=== PATIENT | male | born 1945 | race African-American/Black ===

== ENCOUNTER 2017-03-14 07:38 | Day surgery (SDC) | payer OTHER ==
[2017-03-14] MEDS ORDERED: D5 LR 1000 ML 1,000 ML IV ONE (07:48)
[2017-03-14] MEDS ORDERED: DIPRIVAN VIAL 20 ML ONE ×2 (08:48→08:58)
[2017-03-14 09:49] VITALS: BP 120/60
== END 2017-03-14 09:30 | disposition home or self-care (01) ==
LOC: SURG1 07:38
PROVIDERS: ATTEND Internal Medicine Gastroenterology
PROC: 0DBN8ZX Excision of Sigmoid Colon, Via Natural or Artificial Opening Endoscopic, Diagnostic (ICD-10-PCS; principal; 2017-03-14 08:45)
PROC: 0DJD8ZZ Inspection of Lower Intestinal Tract, Via Natural or Artificial Opening Endoscopic (ICD-10-PCS; principal; 2017-03-14 08:45)
DX: R10.84 Generalized abdominal pain (principal); R10.2 Pelvic and perineal pain; R19.7 Diarrhea, unspecified; K63.5 Polyp of colon; K57.30 Diverticulosis of large intestine without perforation or abscess without bleeding; K64.0 First degree hemorrhoids; Z85.79 Personal history of other malignant neoplasms of lymphoid, hematopoietic and related tissues; Z80.0 Family history of malignant neoplasm of digestive organs
CPT/HCPCS: A4217; J3490; J7120

== ENCOUNTER 2019-10-12 14:52 | Inpatient (IN) ==
[2019-10-12 15:55] LABS: BASOPHILS % (AUTO) 0.8 % (0.2-1.0); EOSINOPHILS # (AUTO) 0.2 x10^3/uL (0.0-0.2); EOSINOPHILS % (AUTO) 2.9 % (0.9-2.9); HEMATOCRIT 36.7 % (42.0-54.0); HEMOGLOBIN 12.2 g/dL (13.5-18.0); LYMPHOCYTES # (AUTO) 1.2 X10^3/uL (1.3-2.9); MEAN CORPUSCULAR HEMOGLOBIN 32.3 pg (27.0-34.0); MEAN CORPUSCULAR HGB CONC 33.3 g/dL (33.0-35.0); MEAN CORPUSCULAR VOLUME 96.8 fL (80.0-100.0); MEAN PLATELET VOLUME 9.3 fL (7.4-11.0); MONOCYTES # (AUTO) 0.2 x10^3/uL (0.3-0.8); MONOCYTES % (AUTO) 3.2 % (0.0-13.0); NEUTROPHILS # (AUTO) 3.9 x10^3/uL (2.2-4.8); NEUTROPHILS % (AUTO) 71.1 % (42.0-75.0); PLATELET COUNT 118 X10^3/uL (150.0-450.0); RED BLOOD COUNT 3.79 X10^6/uL (4.7-6.0); RED CELL DISTRIBUTION WIDTH 16.5 % (11.6-16.5); WHITE BLOOD COUNT 5.5 X10^3/uL (3.6-10.0)
[2019-10-12 16:08] LABS: ALBUMIN 3.1 g/dL (3.4-5.0); CALCIUM 9.4 mg/dL (8.5-10.1); CARBON DIOXIDE 26.5 mmol/L (21-32); COR CA(FOR HYPOALB) 10.1 mg/dL (8.5-10.1); CREATININE 1.63 mg/dL (0.70-1.30); TOTAL PROTEIN 6.7 g/dL (6.4-8.2)
[2019-10-12] MEDS: NS 1000 ML 1,000 ML IV SCH (16:16)
[2019-10-12 16:24] VITALS: BMI 29.0
[2019-10-12 19:19] LABS: BILIRUBIN,URINE NEGATIVE (NEGATIVE); BLOOD/HEMOGLOBIN,URINE NEGATIVE (NEGATIVE); GLUCOSE, URINE 4+ (NEGATIVE); KETONES,URINE NEGATIVE (NEGATIVE); LEUKOCYTE ESTERASE ,URINE NEGATIVE (NEGATIVE); NITRITES,URINE NEGATIVE (NEGATIVE); PROTEIN,URINE NEGATIVE (NEGATIVE); UROBILINOGEN,URINE NORMAL (NORMAL)
[2019-10-12 19:21] LABS: APPEARANCE,URINE CLEAR (CLEAR); COLOR,URINE YELLOW (YELLOW)
[2019-10-12] MEDS: MILK OF MAGNESIA PO SCH (21:28)
[2019-10-12] MEDS: COLACE CAP 100 MG PO SCH (21:28)
[2019-10-12] MEDS ORDERED: TORADOL 30 MG VIAL IVP PRN (21:36)
[2019-10-12] MEDS ORDERED: AMBIEN PO PRN (21:41)
[2019-10-12] MEDS: HumuLIN R SUBCUT PRN (21:41)
[2019-10-12] MEDS ORDERED: OXYCODONE HCL 10 MG PO PRN (21:41)
[2019-10-12] MEDS: MYSOLINE TAB 250 MG PO SCH (22:03)
[2019-10-12] MEDS: REQUIP PO SCH (22:04)
[2019-10-12] MEDS: TORADOL 15 MG VIAL IVP SCH (22:23)
[2019-10-13] MEDS: NS 1000 ML 1,000 ML IV SCH ×2 (06:00→17:15)
[2019-10-13] MEDS: TORADOL 15 MG VIAL IVP SCH (06:01)
[2019-10-13] MEDS: MYSOLINE TAB 250 MG PO SCH ×3 (06:01→21:18)
[2019-10-13 06:02] LABS: BASOPHILS % (AUTO) 0.7 % (0.2-1.0); EOSINOPHILS # (AUTO) 0.1 x10^3/uL (0.0-0.2); EOSINOPHILS % (AUTO) 2.3 % (0.9-2.9); HEMOGLOBIN 10.8 g/dL (13.5-18.0); LYMPHOCYTES % (AUTO) 22.6 % (21.0-51.0); MEAN CORPUSCULAR HEMOGLOBIN 32.4 pg (27.0-34.0); MEAN CORPUSCULAR HGB CONC 33.8 g/dL (33.0-35.0); MEAN CORPUSCULAR VOLUME 95.9 fL (80.0-100.0); MEAN PLATELET VOLUME 9.7 fL (7.4-11.0); MONOCYTES # (AUTO) 0.2 x10^3/uL (0.3-0.8); MONOCYTES % (AUTO) 3.8 % (0.0-13.0); NEUTROPHILS % (AUTO) 70.6 % (42.0-75.0); PLATELET COUNT 94 X10^3/uL (150.0-450.0); RED BLOOD COUNT 3.34 X10^6/uL (4.7-6.0); RED CELL DISTRIBUTION WIDTH 16.2 % (11.6-16.5); WHITE BLOOD COUNT 4.3 X10^3/uL (3.6-10.0)
[2019-10-13] MEDS: ROXICODONE TAB 5 MG PO PRN (06:20)
[2019-10-13] MEDS: HumuLIN R SUBCUT PRN ×2 (06:20→17:15)
[2019-10-13 06:31] LABS: ALANINE AMINOTRANSFERASE 17 Units/L (12-78); ALBUMIN 2.6 g/dL (3.4-5.0); ALKALINE PHOSPHATASE 52 Units/L (46-116); ASPARTATE AMINO TRANSFERASE 11 Units/L (15-37); BLOOD UREA NITROGEN 22 mg/dL (7-18); CALCIUM 8.2 mg/dL (8.5-10.1); CARBON DIOXIDE 24.2 mmol/L (21-32); CHLORIDE 107 mmol/L (98-107); COR CA(FOR HYPOALB) 9.3 mg/dL (8.5-10.1); COR NA(FOR HYPERGLY) 141 mmol/L (136-145); CREATININE 1.34 mg/dL (0.70-1.30); SODIUM 138 mmol/L (136-145); TOTAL PROTEIN 5.8 g/dL (6.4-8.2); eGFR NON BLACK RACES 55 (>60)
[2019-10-13] MEDS: NORVASC TAB 10 MG PO SCH (08:30)
[2019-10-13] MEDS: ASPIRIN 81 MG CHEWTAB PO SCH (08:30)
[2019-10-13] MEDS: FLONASE NASAL SPRAY ENOSTRIL SCH ×2 (08:30→21:17)
[2019-10-13] MEDS: REQUIP PO SCH ×2 (08:31→21:18)
[2019-10-13] MEDS: K-DUR TAB 20 MEQ PO SCH (08:31)
[2019-10-13] MEDS: LOPRESSOR TAB 50 MG PO SCH ×2 (08:31→21:18)
[2019-10-13] MEDS: VITAMIN C PO SCH (08:32)
[2019-10-13] MEDS: [UNRECOGNIZED DRUG - OTHER] PO SCH (08:33)
[2019-10-13] MEDS: IMDUR PO SCH (08:33)
[2019-10-13] MEDS: PLAVIX PO SCH (08:33)
[2019-10-13] MEDS: PROSCAR PO SCH (08:34)
[2019-10-13] MEDS: MILK OF MAGNESIA PO SCH ×2 (09:37→21:18)
[2019-10-13] MEDS: NEURONTIN CAP 100 MG PO SCH ×2 (09:37→21:18)
--- NOTE | 2019-10-13 09:59 | DR.UPDATE ---
H&P Update History and Physical Update: History and Physical reviewed and patient examined. Changes noted: Yes with the following: PRESENTED TO THE OFFICE TODAY FOR COMPLAINTS OF BILATERAL HIP PAIN AND LOWER BACK PAIN. HE HAS A HISTORY OF MULTIPLE MYELOMA. HE HAS RECENTLY RECEIVED TWO INJECTIONS FOR HIS BACK ON AND TWO MORE ON 09/28/19. HE DENIES IMPROVEMENT IN SYMPTOMS AND REPORTS BEING UNABLE TO WALK OR BEAR WEIGHT DUE TO PAIN. HE WAS ADMITTED FOR FURTHER EVALUATION AND TREATMENT OF INTRACTABLE BACK PAIN. ON ADMISSION, WE WILL OBTAIN LABS, A MRI WITH CONTRAST OF THE LUMBAR SPINE, AND START IV FLUIDS, MORPHINE 2MG IV Q4H PRN PAIN, AND WILL REVIEW HIS HOME MEDICATIONS. OTHERWISE, WE WILL FOLLOW UP WITH AM LABS AND CONTINUE TO MONITOR. Prescription drug monitoring program results: PDMP was not reviewed H&P Reviewed: Yes Patient was examined?: Yes
[2019-10-13] MEDS ORDERED: LOVENOX INJ 40 MG SYR SC SCH (11:00)
[2019-10-13] MEDS: SNACK - Diabetic Appropriate PO SCH (21:17)
[2019-10-13] MEDS: FLOMAX PO SCH (21:17)
[2019-10-13] MEDS: COLACE CAP 100 MG PO SCH (21:17)
[2019-10-14] MEDS: ROXICODONE TAB 5 MG PO PRN ×4 (02:50→20:35)
[2019-10-14 05:32] LABS: BASOPHILS % (AUTO) 0.6 % (0.2-1.0); EOSINOPHILS # (AUTO) 0.1 x10^3/uL (0.0-0.2); EOSINOPHILS % (AUTO) 1.7 % (0.9-2.9); HEMATOCRIT 32.8 % (42.0-54.0); HEMOGLOBIN 11.2 g/dL (13.5-18.0); LYMPHOCYTES % (AUTO) 20.2 % (21.0-51.0); MEAN CORPUSCULAR HEMOGLOBIN 32.9 pg (27.0-34.0); MEAN CORPUSCULAR VOLUME 96.8 fL (80.0-100.0); MEAN PLATELET VOLUME 9.8 fL (7.4-11.0); MONOCYTES # (AUTO) 0.2 x10^3/uL (0.3-0.8); MONOCYTES % (AUTO) 4.5 % (0.0-13.0); NEUTROPHILS # (AUTO) 3.6 x10^3/uL (2.2-4.8); PLATELET COUNT 85 X10^3/uL (150.0-450.0); RED BLOOD COUNT 3.39 X10^6/uL (4.7-6.0); RED CELL DISTRIBUTION WIDTH 16.6 % (11.6-16.5); WHITE BLOOD COUNT 4.9 X10^3/uL (3.6-10.0)
[2019-10-14] MEDS: MYSOLINE TAB 250 MG PO SCH ×3 (05:44→21:30)
[2019-10-14] MEDS: HumuLIN R SUBCUT PRN ×4 (05:45→21:45)
[2019-10-14 05:47] LABS: ALANINE AMINOTRANSFERASE 18 Units/L (12-78); ALBUMIN 2.6 g/dL (3.4-5.0); ALKALINE PHOSPHATASE 54 Units/L (46-116); ASPARTATE AMINO TRANSFERASE 12 Units/L (15-37); BLOOD UREA NITROGEN 17 mg/dL (7-18); CARBON DIOXIDE 22.2 mmol/L (21-32); CHLORIDE 106 mmol/L (98-107); COR CA(FOR HYPOALB) 9.1 mg/dL (8.5-10.1); COR NA(FOR HYPERGLY) 141 mmol/L (136-145); CREATININE 1.26 mg/dL (0.70-1.30); SODIUM 137 mmol/L (136-145); TOTAL PROTEIN 5.8 g/dL (6.4-8.2); eGFR NON BLACK RACES 59 (>60)
[2019-10-14] MEDS: NS 1000 ML 1,000 ML IV SCH ×4 (05:55→20:37)
[2019-10-14] MEDS: MORPHINE SULFATE INJ 2 MG INJ IVP PRN ×4 (05:56→23:52)
[2019-10-14] MEDS: REQUIP PO SCH ×2 (09:10→20:34)
[2019-10-14] MEDS: MILK OF MAGNESIA PO SCH ×3 (09:10→20:38)
[2019-10-14] MEDS: ASPIRIN 81 MG CHEWTAB PO SCH (09:10)
[2019-10-14] MEDS: IMDUR PO SCH (09:11)
[2019-10-14] MEDS: VITAMIN C PO SCH (09:11)
[2019-10-14] MEDS: NORVASC TAB 10 MG PO SCH (09:11)
[2019-10-14] MEDS: K-DUR TAB 20 MEQ PO SCH (09:12)
[2019-10-14] MEDS: NEURONTIN CAP 100 MG PO SCH ×2 (09:12→20:34)
[2019-10-14] MEDS: PROSCAR PO SCH (09:12)
[2019-10-14] MEDS: FLONASE NASAL SPRAY ENOSTRIL SCH ×2 (09:12→20:38)
[2019-10-14] MEDS: LOPRESSOR TAB 50 MG PO SCH ×2 (09:12→20:35)
[2019-10-14] MEDS: PLAVIX PO SCH (09:16)
[2019-10-14] MEDS: [UNRECOGNIZED DRUG - OTHER] PO SCH (10:22)
[2019-10-14] MEDS: SNACK - Diabetic Appropriate PO SCH (20:15)
[2019-10-14] MEDS: FLOMAX PO SCH (20:34)
[2019-10-14] MEDS: COLACE CAP 100 MG PO SCH (20:37)
[2019-10-15 05:17] LABS: BASOPHILS % (AUTO) 0.6 % (0.2-1.0); EOSINOPHILS # (AUTO) 0.1 x10^3/uL (0.0-0.2); EOSINOPHILS % (AUTO) 2.1 % (0.9-2.9); HEMATOCRIT 31.5 % (42.0-54.0); HEMOGLOBIN 10.7 g/dL (13.5-18.0); LYMPHOCYTES # (AUTO) 1.1 X10^3/uL (1.3-2.9); LYMPHOCYTES % (AUTO) 23.9 % (21.0-51.0); MEAN CORPUSCULAR HGB CONC 34.1 g/dL (33.0-35.0); MEAN CORPUSCULAR VOLUME 96.7 fL (80.0-100.0); MEAN PLATELET VOLUME 9.7 fL (7.4-11.0); MONOCYTES # (AUTO) 0.2 x10^3/uL (0.3-0.8); NEUTROPHILS # (AUTO) 3.3 x10^3/uL (2.2-4.8); NEUTROPHILS % (AUTO) 68.4 % (42.0-75.0); PLATELET COUNT 87 X10^3/uL (150.0-450.0); RED BLOOD COUNT 3.25 X10^6/uL (4.7-6.0); RED CELL DISTRIBUTION WIDTH 16.7 % (11.6-16.5); WHITE BLOOD COUNT 4.8 X10^3/uL (3.6-10.0)
[2019-10-15 05:27] LABS: ALANINE AMINOTRANSFERASE 19 Units/L (12-78); ALBUMIN 2.6 g/dL (3.4-5.0); ALKALINE PHOSPHATASE 56 Units/L (46-116); ASPARTATE AMINO TRANSFERASE 13 Units/L (15-37); BLOOD UREA NITROGEN 20 mg/dL (7-18); CARBON DIOXIDE 23.6 mmol/L (21-32); CHLORIDE 104 mmol/L (98-107); COR CA(FOR HYPOALB) 9.1 mg/dL (8.5-10.1); COR NA(FOR HYPERGLY) 140 mmol/L (136-145); CREATININE 1.15 mg/dL (0.70-1.30); SODIUM 135 mmol/L (136-145); TOTAL PROTEIN 5.7 g/dL (6.4-8.2); eGFR NON BLACK RACES > 60 (>60)
[2019-10-15] MEDS: ROXICODONE TAB 5 MG PO PRN (05:28)
[2019-10-15] MEDS: MYSOLINE TAB 250 MG PO SCH ×3 (05:28→21:00)
[2019-10-15] MEDS: NS 1000 ML 1,000 ML IV SCH ×4 (05:28→21:59)
[2019-10-15] MEDS: HumuLIN R SUBCUT PRN ×4 (06:07→20:30)
--- NOTE | 2019-10-15 08:45 | PCM.PROG ---
Progress Note - Progress Note for Day of Date of Exam: 10/13/19 - Subjective Subjective: WAS ADMITTED FOR INTRACTABLE BACK PAIN AND BILATERAL HIP PAIN. TODAY, HE IS ALERT AND ORIENTED, LYING IN BED ON MORNING ROUNDS. HE CONTINUES WITH PAIN. HE REPORTS THAT PAIN IS ABOUT THE SAME ON ADMISSION. HE WAS STARTED ON TORADOL, BUT REFUSED DUE TO PAST ISSUES WITH HIS KIDNEYS. ON EXAMINATION, HEART IS REGULAR IN RATE AND RHYTHM. BILATERAL LUNGS ARE NOTED WITH DIMINISHED LUNG SOUNDS THROUGHOUT. ABDOMEN IS ROUND, SOFT, AND NON-TENDER WITH NORMAL BOWEL SOUNDS NOTED IN ALL QUADRANTS. HIS VITALS THIS MORNING ARE: 98.8-84-20-94%-162/71. LABS WERE OBTAINED. ABNORMAL LAB VALUES INCLUDE THE FOLLOWING: RBC 3.34, HGB 10.8, HCT 32.0, PLT COUNT 94, BUN 22, CREATININE 1.34, GLUCOSE 222, CALCIUM 8.2, AST 11, TOTAL PROTEIN 5.8, ALBUMIN 2.6. TODAY, WE WILL CONTINUE WITH IV FLUIDS AND PAIN CONTROL. WHEN KIDNEY FUNCTION IS AT SAFE LEVELS, WE WILL OBTAIN AN MRI WITH CONTRAST OF THE LUMBAR SPINE. OTHERWISE, WE WILL FOLLOW UP WITH AM LABS AND CONTINUE TO MONITOR. - Past Medical Family Social History Past Med/Fam/Surg Hx: No changes since H&P Allergies: Allergies atorvastatin [From Lipitor] Allergy (Verified 11/28/18 05:17) - Review of Systems ROS: No change since H&P - Vital Signs and I&O's Vital Signs: Temperature 97.5 F Pulse Rate [Right Brachial] 80 Respiratory Rate 16 Blood Pressure [Right Arm] 176/79 Blood Pressure 142/65 O2 Sat by Pulse Oximetry 97 Intake and Output: Intake & Output 10/12/19 10/13/19 10/14/19 10/15/19 11:59 11:59 11:59 11:59 Intake Total 1100 / 1100 2320 / 2320 2039 / 2039 Output Total 225 / 225 Balance 1100 / 1100 2320 / 2320 1814 / 181 - Physical Exam Oriented: Normal Eyes: Normal Ear: Normal Nose: Normal Throat: Normal Respiratory: Generalized, Diminished Cardiovascular: Normal. negative: S3, S4, Murmur : Normal Auscultation: Bowel Sounds: Normal Palpation: Normal Tenderness: Normal Skin: Normal Musculoskeletal: Back:Lumbar, Tender Psychiatric: Normal Mood Description: Calm Affect: Normal Speech Pattern: Clear - Laboratory and Diagnostics Result Diagrams: 10/15/19 04:15 10/15/19 04:15 Labs: Laboratory WBC 4.8 X10^3/uL (3.6-10.0) 10/15/19 04:15 RBC 3.25 X10^6/uL (4.7-6.0) L 10/15/19 04:15 Hgb 10.7 g/dL (13.5-18.0) L 10/15/19 04:15 Hct 31.5 % (42.0-54.0) L 10/15/19 04:15 MCV 96.7 fL (80.0-100.0) 10/15/19 04:15 MCH 33.0 pg (27.0-34.0) 10/15/19 04:15 MCHC 34.1 g/dL (33.0-35.0) 10/15/19 04:15 RDW 16.7 % (11.6-16.5) H 10/15/19 04:15 Plt Count 87 X10^3/uL (150.0-450.0) L 10/15/19 04:15 MPV 9.7 fL (7.4-11.0) 10/15/19 04:15 Neut % (Auto) 68.4 % (42.0-75.0) 10/15/19 04:15 Lymph % (Auto) 23.9 % (21.0-51.0) 10/15/19 04:15 [place] % (Auto) 5.0 % (0.0-13.0) 10/15/19 04:15 Eos % (Auto) 2.1 % (0.9-2.9) 10/15/19 04:15 Baso % (Auto) 0.6 % (0.2-1.0) 10/15/19 04:15 Neut # (Auto) 3.3 x10^3/uL (2.2-4.8) 10/15/19 04:15 Lymph # (Auto) 1.1 X10^3/uL (1.3-2.9) L 10/15/19 04:15 [place] # (Auto) 0.2 x10^3/uL (0.3-0.8) L 10/15/19 04:15 Eos # (Auto) 0.1 x10^3/uL (0.0-0.2) 10/15/19 04:15 Baso # (Auto) 0.0 X10^3/uL (0.0-0.1) 10/15/19 04:15 Absolute Nucleated RBC 0.3 /100WBC 10/15/19 04:15 Sodium 135 mmol/L (136-145) L 10/15/19 04:15 Corrected Sodium 140 mmol/L (136-145) 10/15/19 04:15 Potassium 3.9 mmol/L (3.5-5.1) 10/15/19 04:15 Chloride 104 mmol/L (98-107) 10/15/19 04:15 Carbon Dioxide 23.6 mmol/L (21-32) 10/15/19 04:15 BUN 20 mg/dL (7-18) H 10/15/19 04:15 Creatinine 1.15 mg/dL (0.70-1.30) 10/15/19 04:15 Est GFR (MDRD) Af Amer > 60 (>60) 10/15/19 04:15 Est GFR (MDRD) Non-Af > 60 (>60) 10/15/19 04:15 Glucose 292 mg/dL (65-99) H 10/15/19 04:15 POC Glucose (mg/dL) 185 mg/dL (65-99) H 10/15/19 05:34 Calcium 8.0 mg/dL (8.5-10.1) L 10/15/19 04:15 Corrected Calcium 9.1 mg/dL (8.5-10.1) 10/15/19 04:15 Total Bilirubin 0.50 mg/dL (0.2-1.0) 10/15/19 04:15 AST 13 Units/L (15-37) L 10/15/19 04:15 ALT 19 Units/L (12-78) 10/15/19 04:15 Alkaline Phosphatase 56 Units/L (46-116) 10/15/19 04:15 Total Protein 5.7 g/dL (6.4-8.2) L 10/15/19 04:15 Albumin 2.6 g/dL (3.4-5.0) L 10/15/19 04:15 Globulin 3.1 g/dL (2.5-4.5) 10/15/19 04:15 Albumin/Globulin Ratio 0.8 Ratio (1.1-2.1) L 10/15/19 04:15 Specimen Type Random urine 10/12/19 18:40 Urine Color Yellow (YELLOW) 10/12/19 18:40 Urine Appearance Clear (CLEAR) 10/12/19 18:40 Urine pH 5.0 (5.0 - 8.0) 10/12/19 18:40 Ur Specific [place] 1.020 (1.000-1.030) 10/12/19 18:40 Urine Protein Negative (NEGATIVE) 10/12/19 18:40 Urine Glucose (UA) 4+ (NEGATIVE) 10/12/19 18:40 Urine Ketones Negative (NEGATIVE) 10/12/19 18:40 Urine Occult Blood Negative (NEGATIVE) 10/12/19 18:40 Urine Nitrite Negative (NEGATIVE) 10/12/19 18:40 Urine Bilirubin Negative (NEGATIVE) 10/12/19 18:40 Urine Urobilinogen Normal (NORMAL) 10/12/19 18:40 Ur Leukocyte Esterase Negative (NEGATIVE) 10/12/19 18:40 - Plan (1) Intractable low back pain Status: Acute Plan: IV FLUIDS, OXYCODONE 10MG PO QID, MORPHINE 2MG IV Q4H PRN, OBTAIN MRI OF LUMBAR SPINE WITH CONTRAST, CONTINUE TO MONITOR
--- NOTE | 2019-10-15 08:49 | PCM.PROG ---
Progress Note - Progress Note for Day of Date of Exam: 10/14/19 - Subjective Subjective: WAS ADMITTED FOR INTRACTABLE BACK PAIN AND BILATERAL HIP PAIN. TODAY, HE IS ALERT AND ORIENTED, LYING IN BED ON MORNING ROUNDS. HE CONTINUES WITH PAIN. HE REPORTS THAT PAIN HAS SLIGHTLY IMPROVED SINCE ADMISSION. HE WAS STARTED ON TORADOL, BUT REFUSED DUE TO PAST ISSUES WITH HIS KIDNEYS. ON EXAMINATION, HEART IS REGULAR IN RATE AND RHYTHM. BILATERAL LUNGS ARE NOTED WITH DIMINISHED LUNG SOUNDS THROUGHOUT. ABDOMEN IS ROUND, SOFT, AND NON-TENDER WITH NORMAL BOWEL SOUNDS NOTED IN ALL QUADRANTS. HIS VITALS THIS MORNING ARE: 98.7-66-20-96%-171/70. LABS WERE OBTAINED. ABNORMAL LAB VALUES INCLUDE THE FOLLOWING: RBC 3.39, HGB 11.2, HCT 32.8, GLUCOSE 254, CALCIUM 8.0, AST 12, TOTAL PROTEIN 5.8, ALBUMIN 2.6. TODAY, WE WILL CONTINUE WITH IV FLUIDS AND PAIN CONTROL. WHEN KIDNEY FUNCTION IS AT SAFE LEVELS, WE WILL OBTAIN AN MRI WITH CONTRAST OF THE LUMBAR SPINE. OTHERWISE, WE WILL FOLLOW UP WITH AM LABS AND CONTINUE TO MONITOR. - Past Medical Family Social History Past Med/Fam/Surg Hx: No changes since H&P Allergies: Allergies atorvastatin [From Lipitor] Allergy (Verified 11/28/18 05:17) - Review of Systems ROS: No change since H&P - Vital Signs and I&O's Vital Signs: Temperature 97.5 F Pulse Rate [Right Brachial] 80 Respiratory Rate 16 Blood Pressure [Right Arm] 176/79 Blood Pressure 142/65 O2 Sat by Pulse Oximetry 97 Intake and Output: Intake & Output 10/12/19 10/13/19 10/14/19 10/15/19 11:59 11:59 11:59 11:59 Intake Total 1100 / 1100 2320 / 2320 0 / 0 Output Total 225 / 225 Balance 1100 / 1100 2320 / 2320 1815 / 1815 - Physical Exam Oriented: Normal Eyes: Normal Ear: Normal Nose: Normal Throat: Normal Respiratory: Generalized, Diminished Cardiovascular: Normal. negative: S3, S4, Murmur : Normal Auscultation: Bowel Sounds: Normal Tenderness: Normal Skin: Normal Musculoskeletal: Back:Lumbar, Tender Psychiatric: Normal Mood Description: Calm Affect: Normal Speech Pattern: Clear - Laboratory and Diagnostics Result Diagrams: 10/15/19 04:15 10/15/19 04:15 Labs: Laboratory WBC 4.8 X10^3/uL (3.6-10.0) 10/15/19 04:15 RBC 3.25 X10^6/uL (4.7-6.0) L 10/15/19 04:15 Hgb 10.7 g/dL (13.5-18.0) L 10/15/19 04:15 Hct 31.5 % (42.0-54.0) L 10/15/19 04:15 MCV 96.7 fL (80.0-100.0) 10/15/19 04:15 MCH 33.0 pg (27.0-34.0) 10/15/19 04:15 MCHC 34.1 g/dL (33.0-35.0) 10/15/19 04:15 RDW 16.7 % (11.6-16.5) H 10/15/19 04:15 Plt Count 87 X10^3/uL (150.0-450.0) L 10/15/19 04:15 MPV 9.7 fL (7.4-11.0) 10/15/19 04:15 Neut % (Auto) 68.4 % (42.0-75.0) 10/15/19 04:15 Lymph % (Auto) 23.9 % (21.0-51.0) 10/15/19 04:15 [place] % (Auto) 5.0 % (0.0-13.0) 10/15/19 04:15 Eos % (Auto) 2.1 % (0.9-2.9) 10/15/19 04:15 Baso % (Auto) 0.6 % (0.2-1.0) 10/15/19 04:15 Neut # (Auto) 3.3 x10^3/uL (2.2-4.8) 10/15/19 04:15 Lymph # (Auto) 1.1 X10^3/uL (1.3-2.9) L 10/15/19 04:15 [place] # (Auto) 0.2 x10^3/uL (0.3-0.8) L 10/15/19 04:15 Eos # (Auto) 0.1 x10^3/uL (0.0-0.2) 10/15/19 04:15 Baso # (Auto) 0.0 X10^3/uL (0.0-0.1) 10/15/19 04:15 Absolute Nucleated RBC 0.3 /100WBC 10/15/19 04:15 Sodium 135 mmol/L (136-145) L 10/15/19 04:15 Corrected Sodium 140 mmol/L (136-145) 10/15/19 04:15 Potassium 3.9 mmol/L (3.5-5.1) 10/15/19 04:15 Chloride 104 mmol/L (98-107) 10/15/19 04:15 Carbon Dioxide 23.6 mmol/L (21-32) 10/15/19 04:15 BUN 20 mg/dL (7-18) H 10/15/19 04:15 Creatinine 1.15 mg/dL (0.70-1.30) 10/15/19 04:15 Est GFR (MDRD) Af Amer > 60 (>60) 10/15/19 04:15 Est GFR (MDRD) Non-Af > 60 (>60) 10/15/19 04:15 Glucose 292 mg/dL (65-99) H 10/15/19 04:15 POC Glucose (mg/dL) 185 mg/dL (65-99) H 10/15/19 05:34 Calcium 8.0 mg/dL (8.5-10.1) L 10/15/19 04:15 Corrected Calcium 9.1 mg/dL (8.5-10.1) 10/15/19 04:15 Total Bilirubin 0.50 mg/dL (0.2-1.0) 10/15/19 04:15 AST 13 Units/L (15-37) L 10/15/19 04:15 ALT 19 Units/L (12-78) 10/15/19 04:15 Alkaline Phosphatase 56 Units/L (46-116) 10/15/19 04:15 Total Protein 5.7 g/dL (6.4-8.2) L 10/15/19 04:15 Albumin 2.6 g/dL (3.4-5.0) L 10/15/19 04:15 Globulin 3.1 g/dL (2.5-4.5) 10/15/19 04:15 Albumin/Globulin Ratio 0.8 Ratio (1.1-2.1) L 10/15/19 04:15 Specimen Type Random urine 10/12/19 18:40 Urine Color Yellow (YELLOW) 10/12/19 18:40 Urine Appearance Clear (CLEAR) 10/12/19 18:40 Urine pH 5.0 (5.0 - 8.0) 10/12/19 18:40 Ur Specific [place] 1.020 (1.000-1.030) 10/12/19 18:40 Urine Protein Negative (NEGATIVE) 10/12/19 18:40 Urine Glucose (UA) 4+ (NEGATIVE) 10/12/19 18:40 Urine Ketones Negative (NEGATIVE) 10/12/19 18:40 Urine Occult Blood Negative (NEGATIVE) 10/12/19 18:40 Urine Nitrite Negative (NEGATIVE) 10/12/19 18:40 Urine Bilirubin Negative (NEGATIVE) 10/12/19 18:40 Urine Urobilinogen Normal (NORMAL) 10/12/19 18:40 Ur Leukocyte Esterase Negative (NEGATIVE) 10/12/19 18:40 - Plan (1) Intractable low back pain Status: Acute Plan: IV FLUIDS, OXYCODONE 10MG PO QID, MORPHINE 2MG IV Q4H PRN, OBTAIN MRI OF LUMBAR SPINE WITH CONTRAST, CONTINUE TO MONITOR
[2019-10-15] MEDS: ASPIRIN 81 MG CHEWTAB PO SCH (09:15)
[2019-10-15] MEDS: REQUIP PO SCH ×2 (09:15→20:28)
[2019-10-15] MEDS: K-DUR TAB 20 MEQ PO SCH (09:15)
[2019-10-15] MEDS: VITAMIN C PO SCH (09:15)
[2019-10-15] MEDS: IMDUR PO SCH (09:15)
[2019-10-15] MEDS: NORVASC TAB 10 MG PO SCH (09:15)
[2019-10-15] MEDS: NEURONTIN CAP 100 MG PO SCH ×2 (09:16→20:29)
[2019-10-15] MEDS: MORPHINE SULFATE INJ 2 MG INJ IVP PRN (09:17)
[2019-10-15] MEDS: PLAVIX PO SCH (09:17)
[2019-10-15] MEDS: LOPRESSOR TAB 50 MG PO SCH ×2 (09:18→20:28)
[2019-10-15] MEDS: FLONASE NASAL SPRAY ENOSTRIL SCH ×2 (09:18→20:30)
[2019-10-15] MEDS: PROSCAR PO SCH (09:19)
[2019-10-15] MEDS: MILK OF MAGNESIA PO SCH ×2 (10:00→20:30)
[2019-10-15] MEDS: [UNRECOGNIZED DRUG - OTHER] PO SCH (10:00)
[2019-10-15] MEDS: ROXICODONE TAB 15 MG PO PRN ×2 (12:58→20:28)
--- NOTE | 2019-10-15 16:10 | MRI ---
HISTORYINTRACTABLE BACK PAIN,WEAKNESS history of multiple myelomaSTUDYLUMBAR W W/O CONCOMPARISONNoneTECHNIQUEMultiplanar multi-sequence MRI of the lumbar spine was obtained utilizing standard departmental protocol before and after administration of 20 cc of MultiHance IV.FINDINGSThe lumbar vertebra are well aligned. There is moderate disc space narrowing throughout with diffuse moderate disc desiccation. There are [id number] wedge compression fractures of T12 and T11. There are moderate compression fractures of L3 and L4 with moderate susceptibility artifact scattered in the vertebra which may be due to methylmethacrylate from previous vertebroplasties. There is minimal bulging along the posterior cortex of T12. There is no bone marrow edema bone marrow edema and no retropulsed or displaced fragment are seen. The conus is normal.There is a small central disc bulge at T11-12. There is a moderate central disc bulge at L1-2 causing moderate dural sac effacement. There are large central disc bulge at L2-3 and L3-4 causing moderate to severe dural sac compression and moderate neural foraminal narrowing bilaterally at both levels. There is a small disc bulge at L5-S1. There are moderate hypertrophic changes of the facets throughout with ligament flavum hypertrophy causing diffuse moderate spinal stenosis. The paravertebral soft tissues are normal. There are no pars defects. The posterior elements are intact with no pars defects. No enhancing lesion or mass is seen.[id number] old compression wedge compression fractures of T11, T12, L4, and L5 with questionable previous vertebroplasties at L4 and L5 with no acute bony abnormality. Recommend correlating with certain prior surgical history. No enhancing lesion or mass is seen.Moderate multilevel degenerative disc disease with mild bulging of the posterior cortex of T12 causing mild dural sac effacement. No displaced or retropulsed fragment is seen.Diffuse large disc bulges at L2-3 and L3-4 causing moderate to severe dural sac compression and moderate neural foraminal narrowing at both levels.Moderate central disc bulges at L1-2 and L4-5.Small central disc bulge at L5-S1.Moderately severe osteoarthritic changes of the facet throughout causing diffuse moderate spinal stenosis.Electronically signed by: ISSAC PRUITT (Oct 15, 2019 16:09:15)
[2019-10-15] MEDS: SNACK - Diabetic Appropriate PO SCH (19:36)
--- NOTE | 2019-10-15 19:38 | PCM.PROG ---
Progress Note - Progress Note for Day of Date of Exam: 10/15/19 - Subjective Subjective: WAS ADMITTED FOR INTRACTABLE BACK PAIN AND BILATERAL HIP PAIN. TODAY, HE IS ALERT AND ORIENTED, SITTING IN CHAIR ON MORNING ROUNDS. HE CONTINUES WITH PAIN. HE REPORTS THAT PAIN DOES NOT SEEM TO HAVE IMPROVED SINCE YESTERDAY. HE REPORTS BEING UNSTEADY ON HIS FEET DUE TO SEVERE PAIN WHEN AMBULATING. ON EXAMINATION, HEART IS REGULAR IN RATE AND RHYTHM. BILATERAL LUNGS ARE NOTED WITH DIMINISHED LUNG SOUNDS THROUGHOUT. ABDOMEN IS ROUND, SOFT, AND NON-TENDER WITH NORMAL BOWEL SOUNDS NOTED IN ALL QUADRANTS. HIS VITALS THIS MORNING ARE: 100.2-75-20-95%-161/76. LABS WERE OBTAINED. ABNORMAL LAB VALUES INCLUDE THE FOLLOWING: RBC 3.25, HGB 10.7, HCT 31.5, PLT COUNT 87, SODIUM 135, BUN 20, GLUCOSE 292, CALCIUM 8.0, AST 13, TOTAL PROTEIN 5.7, ALBUMIN 2.6. TODAY, WE WILL CONTINUE WITH IV FLUIDS AND PAIN CONTROL. WE WILL OBTAIN AN MRI WITH CONTRAST OF THE LUMBAR SPINE. WE WILL INCREASE ROXICODONE TO 15MG PO QID. OTHERWISE, WE WILL FOLLOW UP WITH AM LABS AND CONTINUE TO MONITOR. - Past Medical Family Social History Past Med/Fam/Surg Hx: No changes since H&P Allergies: Allergies atorvastatin [From Lipitor] Allergy (Verified 11/28/18 05:17) - Review of Systems ROS: No change since H&P - Vital Signs and I&O's Vital Signs: Temperature 98.1 F Pulse Rate [Right Brachial] 69 Respiratory Rate 18 Blood Pressure [Right Arm] 147/67 Blood Pressure 142/65 O2 Sat by Pulse Oximetry 98 Intake and Output: Intake & Output 10/13/19 10/14/19 10/15/19 10/16/19 11:59 11:59 11:59 11:59 Intake Total 1100 / 1100 2320 / 2320 2040 / 2040 960 / 960 Output Total 225 / 225 Balance 1100 / 1100 2320 / 2320 1815 / 1815 960 / 960 - Physical Exam Oriented: Normal Eyes: Normal Ear: Normal Nose: Normal Throat: Normal Respiratory: Generalized, Diminished Cardiovascular: Normal. negative: S3, S4, Murmur : Normal Auscultation: Bowel Sounds: Normal Tenderness: Normal Skin: Normal Musculoskeletal: Back:Lumbar, Tender Psychiatric: Normal Mood Description: Calm Affect: Normal Speech Pattern: Clear - Laboratory and Diagnostics Result Diagrams: 10/15/19 04:15 10/15/19 04:15 Labs: Laboratory WBC 4.8 X10^3/uL (3.6-10.0) 10/15/19 04:15 RBC 3.25 X10^6/uL (4.7-6.0) L 10/15/19 04:15 Hgb 10.7 g/dL (13.5-18.0) L 10/15/19 04:15 Hct 31.5 % (42.0-54.0) L 10/15/19 04:15 MCV 96.7 fL (80.0-100.0) 10/15/19 04:15 MCH 33.0 pg (27.0-34.0) 10/15/19 04:15 MCHC 34.1 g/dL (33.0-35.0) 10/15/19 04:15 RDW 16.7 % (11.6-16.5) H 10/15/19 04:15 Plt Count 87 X10^3/uL (150.0-450.0) L 10/15/19 04:15 MPV 9.7 fL (7.4-11.0) 10/15/19 04:15 Neut % (Auto) 68.4 % (42.0-75.0) 10/15/19 04:15 Lymph % (Auto) 23.9 % (21.0-51.0) 10/15/19 04:15 [place] % (Auto) 5.0 % (0.0-13.0) 10/15/19 04:15 Eos % (Auto) 2.1 % (0.9-2.9) 10/15/19 04:15 Baso % (Auto) 0.6 % (0.2-1.0) 10/15/19 04:15 Neut # (Auto) 3.3 x10^3/uL (2.2-4.8) 10/15/19 04:15 Lymph # (Auto) 1.1 X10^3/uL (1.3-2.9) L 10/15/19 04:15 [place] # (Auto) 0.2 x10^3/uL (0.3-0.8) L 10/15/19 04:15 Eos # (Auto) 0.1 x10^3/uL (0.0-0.2) 10/15/19 04:15 Baso # (Auto) 0.0 X10^3/uL (0.0-0.1) 10/15/19 04:15 Absolute Nucleated RBC 0.3 /100WBC 10/15/19 04:15 Sodium 135 mmol/L (136-145) L 10/15/19 04:15 Corrected Sodium 140 mmol/L (136-145) 10/15/19 04:15 Potassium 3.9 mmol/L (3.5-5.1) 10/15/19 04:15 Chloride 104 mmol/L (98-107) 10/15/19 04:15 Carbon Dioxide 23.6 mmol/L (21-32) 10/15/19 04:15 BUN 20 mg/dL (7-18) H 10/15/19 04:15 Creatinine 1.15 mg/dL (0.70-1.30) 10/15/19 04:15 Est GFR (MDRD) Af Amer > 60 (>60) 10/15/19 04:15 Est GFR (MDRD) Non-Af > 60 (>60) 10/15/19 04:15 Glucose 292 mg/dL (65-99) H 10/15/19 04:15 POC Glucose (mg/dL) 221 mg/dL (65-99) H 10/15/19 16:09 Calcium 8.0 mg/dL (8.5-10.1) L 10/15/19 04:15 Corrected Calcium 9.1 mg/dL (8.5-10.1) 10/15/19 04:15 Total Bilirubin 0.50 mg/dL (0.2-1.0) 10/15/19 04:15 AST 13 Units/L (15-37) L 10/15/19 04:15 ALT 19 Units/L (12-78) 10/15/19 04:15 Alkaline Phosphatase 56 Units/L (46-116) 10/15/19 04:15 Total Protein 5.7 g/dL (6.4-8.2) L 10/15/19 04:15 Albumin 2.6 g/dL (3.4-5.0) L 10/15/19 04:15 Globulin 3.1 g/dL (2.5-4.5) 10/15/19 04:15 Albumin/Globulin Ratio 0.8 Ratio (1.1-2.1) L 10/15/19 04:15 Specimen Type Random urine 10/12/19 18:40 Urine Color Yellow (YELLOW) 10/12/19 18:40 Urine Appearance Clear (CLEAR) 10/12/19 18:40 Urine pH 5.0 (5.0 - 8.0) 10/12/19 18:40 Ur Specific [place] 1.020 (1.000-1.030) 10/12/19 18:40 Urine Protein Negative (NEGATIVE) 10/12/19 18:40 Urine Glucose (UA) 4+ (NEGATIVE) 10/12/19 18:40 Urine Ketones Negative (NEGATIVE) 10/12/19 18:40 Urine Occult Blood Negative (NEGATIVE) 10/12/19 18:40 Urine Nitrite Negative (NEGATIVE) 10/12/19 18:40 Urine Bilirubin Negative (NEGATIVE) 10/12/19 18:40 Urine Urobilinogen Normal (NORMAL) 10/12/19 18:40 Ur Leukocyte Esterase Negative (NEGATIVE) 10/12/19 18:40 - Plan (1) Intractable low back pain Status: Acute Plan: IV FLUIDS, OXYCODONE 10MG PO QID, MORPHINE 2MG IV Q4H PRN, OBTAIN MRI OF LUMBAR SPINE WITH CONTRAST, CONTINUE TO MONITOR
[2019-10-15] MEDS: COLACE CAP 100 MG PO SCH (20:29)
[2019-10-15] MEDS: FLOMAX PO SCH (20:29)
[2019-10-16] MEDS: MORPHINE SULFATE INJ 2 MG INJ IVP PRN (02:08)
[2019-10-16 05:23] LABS: BASOPHILS % (AUTO) 0.8 % (0.2-1.0); EOSINOPHILS # (AUTO) 0.1 x10^3/uL (0.0-0.2); EOSINOPHILS % (AUTO) 2.5 % (0.9-2.9); HEMATOCRIT 33.9 % (42.0-54.0); HEMOGLOBIN 11.5 g/dL (13.5-18.0); LYMPHOCYTES # (AUTO) 1.8 X10^3/uL (1.3-2.9); LYMPHOCYTES % (AUTO) 37.9 % (21.0-51.0); MEAN CORPUSCULAR HEMOGLOBIN 32.6 pg (27.0-34.0); MEAN CORPUSCULAR HGB CONC 33.8 g/dL (33.0-35.0); MEAN CORPUSCULAR VOLUME 96.4 fL (80.0-100.0); MEAN PLATELET VOLUME 10.1 fL (7.4-11.0); MONOCYTES # (AUTO) 0.4 x10^3/uL (0.3-0.8); MONOCYTES % (AUTO) 9.5 % (0.0-13.0); NEUTROPHILS # (AUTO) 2.3 x10^3/uL (2.2-4.8); NEUTROPHILS % (AUTO) 49.3 % (42.0-75.0); PLATELET COUNT 93 X10^3/uL (150.0-450.0); RED BLOOD COUNT 3.52 X10^6/uL (4.7-6.0); RED CELL DISTRIBUTION WIDTH 16.6 % (11.6-16.5); WHITE BLOOD COUNT 4.6 X10^3/uL (3.6-10.0)
[2019-10-16 05:38] LABS: ALANINE AMINOTRANSFERASE 22 Units/L (12-78); ALBUMIN 2.9 g/dL (3.4-5.0); ALKALINE PHOSPHATASE 65 Units/L (46-116); ASPARTATE AMINO TRANSFERASE 15 Units/L (15-37); BLOOD UREA NITROGEN 25 mg/dL (7-18); CALCIUM 8.2 mg/dL (8.5-10.1); CARBON DIOXIDE 23.8 mmol/L (21-32); CHLORIDE 105 mmol/L (98-107); COR CA(FOR HYPOALB) 9.1 mg/dL (8.5-10.1); COR NA(FOR HYPERGLY) 140 mmol/L (136-145); CREATININE 1.23 mg/dL (0.70-1.30); SODIUM 137 mmol/L (136-145); TOTAL PROTEIN 6.3 g/dL (6.4-8.2); eGFR NON BLACK RACES > 60 (>60)
[2019-10-16] MEDS: MYSOLINE TAB 250 MG PO SCH (05:38)
[2019-10-16] MEDS: HumuLIN R SUBCUT PRN (06:00)
[2019-10-16 08:03] VITALS: BP 186/81
[2019-10-16] MEDS: VITAMIN C PO SCH (08:40)
[2019-10-16] MEDS: ASPIRIN 81 MG CHEWTAB PO SCH (08:40)
[2019-10-16] MEDS: LOPRESSOR TAB 50 MG PO SCH (08:40)
[2019-10-16] MEDS: K-DUR TAB 20 MEQ PO SCH (08:41)
[2019-10-16] MEDS: ROXICODONE TAB 15 MG PO PRN (08:41)
[2019-10-16] MEDS: PROSCAR PO SCH (08:41)
[2019-10-16] MEDS: IMDUR PO SCH (08:42)
[2019-10-16] MEDS: REQUIP PO SCH (08:42)
[2019-10-16] MEDS: PLAVIX PO SCH (08:42)
[2019-10-16] MEDS: NORVASC TAB 10 MG PO SCH (08:42)
[2019-10-16] MEDS: NEURONTIN CAP 100 MG PO SCH (08:42)
[2019-10-16] MEDS: NS 1000 ML 1,000 ML IV SCH (08:46)
[2019-10-16] MEDS: MILK OF MAGNESIA PO SCH (09:04)
[2019-10-16] MEDS: FLONASE NASAL SPRAY ENOSTRIL SCH (09:04)
[2019-10-16] MEDS: [UNRECOGNIZED DRUG - OTHER] PO SCH (09:04)
== END 2019-10-16 11:08 | disposition home health service (06) | DRG 543 ==
LOC: MED/SURG
PROVIDERS: ADMIT Internal Medicine; ATTEND Internal Medicine
DX: M48.54XA Collapsed vertebra, not elsewhere classified, thoracic region, initial encounter for fracture; M48.56XA Collapsed vertebra, not elsewhere classified, lumbar region, initial encounter for fracture; M25.551 Pain in right hip; M25.552 Pain in left hip; R26.89 Other abnormalities of gait and mobility; M51.34 Other intervertebral disc degeneration, thoracic region; E11.65 Type 2 diabetes mellitus with hyperglycemia; M48.04 Spinal stenosis, thoracic region; C90.01 Multiple myeloma in remission
CPT/HCPCS: 36415; 72158; 80053; 81003; 85025; 97116; 97162; 97530; A4216; A4222; S0138; G0378; J1642; J1650; J1815; J2270; J7030

== ENCOUNTER 2023-08-07 16:27 | Inpatient (IN) ==
--- NOTE | 2023-08-07 16:32 | EKG ---
Test Reason : chest pain Blood Pressure : */* mmHG Vent. Rate : 107 BPM Atrial Rate : 107 BPM P-R Int : 136 ms QRS Dur : 90 ms QT Int : 312 ms P-R-T Axes : 57 17 107 degrees QTc Int : 416 ms Sinus tachycardia Minimal voltage criteria for LVH, may be normal variant ( R in aVL ) Septal infarct , age undetermined Nonspecific ST abnormality Abnormal ECG No previous ECGs available Confirmed by Noé Tam MD ([id number]) on 08/08/2023 12:33:23 PM Referred By: Confirmed By: Noé Tam MD
--- NOTE | 2023-08-07 16:37 | DR.CP ---
HPI Time Seen Time Seen by Provider: 08/07/23 16:35 Complaint Chief Complaint Doctor Comments: 78 y/o male presents for evaluation. Was diagnosed with Covid 2 days ago. Having generalized body aches, chest pain. Having generalized weakness. No bowel or bladder complaints. Is on chronic pain medicine, oxycodone, 10/325, 3 times daily. Having a cough, not productive. Having anterior chest pain, off and on. Pain worse with coughing, nothing makes it better. Does have a history of coronary disease with several stents placed, last few weeks ago. No fever, chills. Reviewed Nurses Notes Review: Yes Source History Provided: Patient and Significant Other PMH PMH Past Medical History: Diabetes and Hypertension Past Surgical History: Yes Surgical History: Angioplasty/Stents, Ortho Surgery and Other Family History Family Medical History: Diabetes Mellitus and Hypertension Social History Does patient currently use any type of tobacco product: No Alcohol Use: None Do you use any recreational Drugs:: No Infectious screening Isolation: Droplet ROS Review of Systems Constitutional: Chills, Malaise and Weakness Eyes: No Symptoms Reported ENTM: No Symptoms Reported Respiratoy: Moist Cough Cardiovascular: Chest Pain Gastrointestinal/Abdominal: No Symptoms Reported Genitourinary: No Symptoms Reported Neurological: Weakness Musculoskeletal: Muscle Pain Integumentary: No Symptoms Reported Hematologic/Lymphatic: No Symptoms Reported All Other Systems: Reviewed and Negative PE Vitals Vitals: Vital Signs Temperature 97.6 F Pulse Rate 100 Pulse Rate 97 Pulse Rate 98 Pulse Rate 97 Pulse Rate 97 Pulse Rate 99 Pulse Rate 100 Pulse Rate 99 Pulse Rate 97 Pulse Rate 100 Pulse Rate 100 Pulse Rate 97 Pulse Rate 106 Pulse Rate 103 Pulse Rate 98 Pulse Rate 98 Pulse Rate 97 Pulse Rate 97 Pulse Rate 97 Pulse Rate 100 Pulse Rate 101 Pulse Rate 105 Pulse Rate 107 Pulse Rate 108 Pulse Rate 111 Pulse Rate 114 Pulse Rate 123 Pulse Rate 127 Pulse Rate 105 Pulse Rate 103 Pulse Rate 102 Pulse Rate 102 Pulse Rate 108 Pulse Rate 106 Pulse Rate 109 Pulse Rate 109 Respiratory Rate 22 Respiratory Rate 18 Respiratory Rate 20 Respiratory Rate 16 Respiratory Rate 25 Respiratory Rate 18 Respiratory Rate 20 Respiratory Rate 17 Respiratory Rate 21 Respiratory Rate 20 Respiratory Rate 28 Respiratory Rate 19 Respiratory Rate 30 Respiratory Rate 21 Respiratory Rate 17 Respiratory Rate 22 Respiratory Rate 21 Respiratory Rate 23 Respiratory Rate 17 Respiratory Rate 18 Respiratory Rate 28 Respiratory Rate 25 Respiratory Rate 19 Respiratory Rate 18 Respiratory Rate 22 Respiratory Rate 20 Respiratory Rate 20 Respiratory Rate 28 Respiratory Rate 20 Respiratory Rate 20 Respiratory Rate 21 Respiratory Rate 24 Respiratory Rate 28 Respiratory Rate 19 Respiratory Rate 20 Respiratory Rate 18 Respiratory Rate 23 Respiratory Rate 22 Respiratory Rate 18 Respiratory Rate 36 Respiratory Rate 18 Blood Pressure 175/79 Blood Pressure 161/56 Blood Pressure 199/90 Blood Pressure 202/92 Blood Pressure 190/79 Blood Pressure 183/84 Blood Pressure 191/97 Blood Pressure 182/98 Blood Pressure 189/88 Blood Pressure 193/88 Blood Pressure 194/86 Blood Pressure 206/99 Blood Pressure 190/89 Blood Pressure 195/79 Blood Pressure 210/101 Blood Pressure 205/88 Blood Pressure 205/95 Blood Pressure 209/97 Blood Pressure 207/99 Blood Pressure 204/83 Blood Pressure 203/95 Blood Pressure 180/82 Blood Pressure 199/94 Blood Pressure 198/89 Blood Pressure 213/106 Blood Pressure 203/104 Blood Pressure 209/153 Blood Pressure 197/83 Blood Pressure 202/86 Blood Pressure 178/77 O2 Sat by Pulse Oximetry 97 O2 Sat by Pulse Oximetry 100 O2 Sat by Pulse Oximetry 100 O2 Sat by Pulse Oximetry 100 O2 Sat by Pulse Oximetry 99 O2 Sat by Pulse Oximetry 100 O2 Sat by Pulse Oximetry 100 O2 Sat by Pulse Oximetry 100 O2 Sat by Pulse Oximetry 100 O2 Sat by Pulse Oximetry 100 General General Appearance: Alert and In No Apparent Distress Eyes Eye exam: PERRL and EOMI ENT ENT Exam: Mucous Membranes Moist Chest Chest Inspection: Normal Inspection Respiratory Respiratory Exam: Normal Lung Sounds Bilat; negative Accessory Muscle Use or Respiratory Distress Cardiovascular Cardiovascular Exam: Regular Rate, Normal Rhythm and Normal Heart Sounds Abdominal Exam Abdominal Exam: Normal Bowel Sounds and Soft; negative Tenderness Extremities Extremities Exam: Normal Inspection and Full ROM; negative Edema Back Back Exam: Normal Inspection Neurologic Neurological Exam: Alert, Oriented X3 and CN II-XII Intact; negative Motor Sensory Deficit Skin Skin Exam: Warm and Dry COURSE Treatment Treatment: 78-year-old male with recent diagnosis of COVID, presents with chest pain, weakness. Benign. Work-up initiated. Patient's chest pain worsened while here. Given sublingual nitro x2 given IV morphine. Initial troponin slightly above normal at 64. 2 hr repeat troponin higher, 120. EKG and repeat EKG showed no acute ischemic changes. Patient clinically with a non-STEMI. Does see cardiology down at [facility]. Patient pain-free after meds. Discussed with his covering on-call physician, Dr. Carey, accepts admission here. Will consult cardiology in the a.m. patient placed on heparin drip. Patient with several cardiac stents, was told he needs bypass in the future. Patient excepted at this facility due to lack of EMS transport in the p.m. hours, may require transfer tomorrow, based on his clinical condition. [facility] Labs Reviewed Laboratory Results Reviewed?: Yes 08/08/23 03:35 08/08/23 03:35 Laboratory: WBC 5.7 X10^3/uL (3.6-10.0) 08/07/23 17:05 RBC 2.40 X10^6/uL (4.7-6.0) L 08/07/23 17:05 Hgb 7.9 g/dL (13.5-18.0) L 08/07/23 17:05 Hct 23.3 % (42.0-54.0) L 08/07/23 17:05 MCV 97.0 fL (80.0-100.0) 08/07/23 17:05 MCH 32.9 pg (27.0-34.0) 08/07/23 17:05 MCHC 33.9 g/dL (33.0-35.0) 08/07/23 17:05 RDW 17.3 % (11.6-16.5) H 08/07/23 17:05 Plt Count 69 X10^3/uL (150.0-450.0) L 08/07/23 17:05 MPV 9.6 fL (7.4-11.0) 08/07/23 17:05 Neut % (Auto) 80.0 % (42.0-75.0) H 08/07/23 17:05 Lymph % (Auto) 15.2 % (21.0-51.0) L 08/07/23 17:05 [place] % (Auto) 4.2 % (0.0-13.0) 08/07/23 17:05 Eos % (Auto) 0.4 % (0.9-2.9) L 08/07/23 17:05 Baso % (Auto) 0.2 % (0.2-1.0) 08/07/23 17:05 Neut # (Auto) 4.6 x10^3/uL (2.2-4.8) 08/07/23 17:05 Lymph # (Auto) 0.9 X10^3/uL (1.3-2.9) L 08/07/23 17:05 [place] # (Auto) 0.2 x10^3/uL (0.3-0.8) L 08/07/23 17:05 Eos # (Auto) 0.0 x10^3/uL (0.0-0.2) 08/07/23 17:05 Baso # (Auto) 0.0 X10^3/uL (0.0-0.1) 08/07/23 17:05 Absolute Nucleated RBC 0.1 /100WBC 08/07/23 17:05 Sodium 139 mmol/L (136-145) 08/07/23 17:05 Corrected Sodium TNP 08/07/23 17:05 Potassium 3.0 mmol/L (3.5-5.1) L 08/07/23 17:05 Chloride 111 mmol/L (98-107) H 08/07/23 17:05 Carbon Dioxide 22.4 mmol/L (21-32) 08/07/23 17:05 BUN 24 mg/dL (7-18) H 08/07/23 17:05 Creatinine 2.39 mg/dL (0.70-1.30) H 08/07/23 17:05 Est GFR (MDRD) Af Amer 34 (>60) L 08/07/23 17:05 Est GFR (MDRD) Non-Af 28 (>60) L 08/07/23 17:05 Glucose 98 mg/dL (65-99) 08/07/23 17:05 Calcium 7.9 mg/dL (8.5-10.1) L 08/07/23 17:05 Corrected Calcium 9.3 mg/dL (8.5-10.1) 08/07/23 17:05 Magnesium 1.9 mg/dL (2.0-2.9) L 08/07/23 19:08 Total Bilirubin 0.50 mg/dL (0.2-1.0) 08/07/23 17:05 AST 13 Units/L (15-37) L 08/07/23 17:05 ALT 9 Units/L (12-78) L 08/07/23 17:05 Alkaline Phosphatase 41 Units/L (46-116) L 08/07/23 17:05 Troponin I High Sens 119.1 ng/L (4.0-60.0) H* 08/07/23 19:08 Total Protein 9.2 g/dL (6.4-8.2) H 08/07/23 17:05 Albumin 2.2 g/dL (3.4-5.0) L 08/07/23 17:05 Globulin 7.0 g/dL (2.5-4.5) H 08/07/23 17:05 Albumin/Globulin Ratio 0.3 Ratio (1.1-2.1) L 08/07/23 17:05 Lipase 77 Units/L (73-393) 08/07/23 17:05 Specimen Type Clean catch urine 08/07/23 17:43 Urine Color Pale yellow (YELLOW) 08/07/23 17:43 Urine Appearance Clear (CLEAR) 08/07/23 17:43 Urine pH 6.0 (5.0 - 8.0) 08/07/23 17:43 Ur Specific [place] 1.015 (1.000-1.030) 08/07/23 17:43 Urine Protein 2+ (NEGATIVE) 08/07/23 17:43 Urine Glucose (UA) Negative (NEGATIVE) 08/07/23 17:43 Urine Ketones Negative (NEGATIVE) 08/07/23 17:43 Urine Blood 2+ (NEGATIVE) 08/07/23 17:43 Urine Nitrite Negative (NEGATIVE) 08/07/23 17:43 Urine Bilirubin Negative (NEGATIVE) 08/07/23 17:43 Urine Urobilinogen Normal (NORMAL) 08/07/23 17:43 Ur Leukocyte Esterase Negative (NEGATIVE) 08/07/23 17:43 Urine RBC 3-5 /HPF (0-3) A 08/07/23 17:43 Urine WBC 0-2 /HPF (0-5) 08/07/23 17:43 Ur Squamous Epith Cells Negative /HPF (NEGATIVE) 08/07/23 17:43 Urine Bacteria Negative /HPF (NEGATIVE) 08/07/23 17:43 Ur Culture Indicated? No/not indicated 08/07/23 17:43 EKG Rate: 107 [place]: Normal Rhythm: ST ST: Nonsp Opioid Opioid Risk Tool Age (Marvin box if 16-45): No History of Preadolescent Sexual Abuse: No Total: 0 Total Score Risk Category: Low Risk Copyright: Edi ZHANG predicting aberrant behaviors Discharge Plan Diagnosis Discharge Problem: Non-ST elevated myocardial infarction (non-STEMI), COVID-19 virus infection Discharge Plan Patient Disposition: 09 ADMITTED INPATIENT Condition: Stable
[2023-08-07] MEDS ORDERED: NS 500 ML IV 500 ML IV ONE ×2 (16:40→16:46)
[2023-08-07 17:18] LABS: BASOPHILS % (AUTO) 0.2 % (0.2-1.0); EOSINOPHILS % (AUTO) 0.4 % (0.9-2.9); HEMATOCRIT 23.3 % (42.0-54.0); HEMOGLOBIN 7.9 g/dL (13.5-18.0); LYMPHOCYTES # (AUTO) 0.9 X10^3/uL (1.3-2.9); LYMPHOCYTES % (AUTO) 15.2 % (21.0-51.0); MEAN CORPUSCULAR HEMOGLOBIN 32.9 pg (27.0-34.0); MEAN CORPUSCULAR HGB CONC 33.9 g/dL (33.0-35.0); MEAN PLATELET VOLUME 9.6 fL (7.4-11.0); MONOCYTES # (AUTO) 0.2 x10^3/uL (0.3-0.8); MONOCYTES % (AUTO) 4.2 % (0.0-13.0); NEUTROPHILS # (AUTO) 4.6 x10^3/uL (2.2-4.8); PLATELET COUNT 69 X10^3/uL (150.0-450.0); RED CELL DISTRIBUTION WIDTH 17.3 % (11.6-16.5); WHITE BLOOD COUNT 5.7 X10^3/uL (3.6-10.0)
[2023-08-07] MEDS: NITROSTAT SL PRN ×2 (17:37→17:43)
[2023-08-07 17:38] LABS: ALANINE AMINOTRANSFERASE 9 Units/L (12-78); ALBUMIN 2.2 g/dL (3.4-5.0); ALKALINE PHOSPHATASE 41 Units/L (46-116); ASPARTATE AMINO TRANSFERASE 13 Units/L (15-37); BLOOD UREA NITROGEN 24 mg/dL (7-18); CALCIUM 7.9 mg/dL (8.5-10.1); CARBON DIOXIDE 22.4 mmol/L (21-32); CHLORIDE 111 mmol/L (98-107); COR CA(FOR HYPOALB) 9.3 mg/dL (8.5-10.1); CREATININE 2.39 mg/dL (0.70-1.30); GLUCOSE 98 mg/dL (65-99); LIPASE 77 Units/L (73-393); SODIUM 139 mmol/L (136-145); TOTAL PROTEIN 9.2 g/dL (6.4-8.2); eGFR NON BLACK RACES 28 (>60)
[2023-08-07] MEDS ORDERED: ZOFRAN INJ 4 MG VIAL IVP ONE (17:45)
[2023-08-07] MEDS ORDERED: MORPHINE SULFATE INJ 4 MG IVP ONE (17:45)
[2023-08-07] MEDS ORDERED: MORPHINE SULFATE INJ 4 MG ONE (17:46)
[2023-08-07] MEDS ORDERED: ZOFRAN INJ 4 MG VIAL ONE (17:46)
[2023-08-07 17:50] LABS: BILIRUBIN,URINE NEGATIVE (NEGATIVE); BLOOD/HEMOGLOBIN,URINE 2+ (NEGATIVE); GLUCOSE, URINE NEGATIVE (NEGATIVE); KETONES,URINE NEGATIVE (NEGATIVE); LEUKOCYTE ESTERASE ,URINE NEGATIVE (NEGATIVE); NITRITES,URINE NEGATIVE (NEGATIVE); PROTEIN,URINE 2+ (NEGATIVE); UROBILINOGEN,URINE NORMAL (NORMAL)
[2023-08-07 17:56] LABS: APPEARANCE,URINE CLEAR (CLEAR); COLOR,URINE PALE YELLOW (YELLOW)
[2023-08-07 17:57] LABS: BACTERIA,URINE NEGATIVE /HPF (NEGATIVE); SQUAMOUS EPITHELIAL CELL,UR NEGATIVE /HPF (NEGATIVE)
--- NOTE | 2023-08-07 19:16 | EKG ---
Test Reason : CHEST PAIN Blood Pressure : */* mmHG Vent. Rate : 98 BPM Atrial Rate : 98 BPM P-R Int : 124 ms QRS Dur : 90 ms QT Int : 352 ms P-R-T Axes : 83 -18 85 degrees QTc Int : 449 ms Normal sinus rhythm Minimal voltage criteria for LVH, may be normal variant ( R in aVL ) Borderline ECG When compared with ECG of 07-AUG-2023 16:29, (Unconfirmed) ST no longer depressed in Anterior leads Nonspecific T wave abnormality, improved in Lateral leads Confirmed by Noé Tam MD ([id number]) on 08/08/2023 12:33:43 PM Referred By: Confirmed By: Noé Tam MD
[2023-08-07] MEDS ORDERED: HEPARIN SODIUM INJ 5000 UNITS IVP ONE (19:49)
[2023-08-07] MEDS ORDERED: HEPARIN SODIUM INJ 5000 UNITS ONE (19:52)
[2023-08-07] MEDS ORDERED: HEPARIN SODIUM IN D5W 25,000 UNITS/500 ML BAG ONE (19:52)
[2023-08-07] MEDS ORDERED: CATAPRES TAB 0.2 MG PO ONE (20:16)
[2023-08-07] MEDS ORDERED: CATAPRES TAB 0.2 MG ONE (20:24)
[2023-08-07] MEDS: HEPARIN SODIUM IN D5W 25,000 UNITS/500 ML BAG IV PRN (21:09)
[2023-08-07] MEDS ORDERED: MORPHINE SULFATE INJ 4 MG IVP PRN (21:37)
[2023-08-07] MEDS ORDERED: CONSULT PHARMACY - POTASSIUM & MAGNESIUM XX SCH ×2 (21:37→23:00)
[2023-08-07] MEDS ORDERED: ZOFRAN INJ 4 MG VIAL IVP PRN (21:37)
[2023-08-07] MEDS: K-DUR TAB 20 MEQ PO SCH ×2 (22:40→23:59)
[2023-08-07] MEDS: MAG-OX TAB PO SCH ×2 (23:15→23:58)
--- NOTE | 2023-08-08 | RAD ---
EXAM:FRONTAL VIEW CHEST X-RAYHISTORY:chest pain, covid+;COMPARISON:None.FINDINGS:Calcifie d granulomatous disease is noted.No focal consolidation is seen.The heart size is within normal limits.The mediastinum is unremarkable.There is no evidence of pleural effusion or gross pneumothorax.The trachea is midline.IMPRESSION:1. No focal consolidation is seen.2. The heart size is normal.THIS IS AN ELECTRONICALLY VERIFIED FINAL [id number]/07/2023 11:57 PM - Electronically signed by Blayne Hitchcock MD
[2023-08-08] MEDS: K-DUR TAB 20 MEQ PO SCH (01:41)
[2023-08-08 03:55] LABS: BASOPHILS # (AUTO) 0.1 X10^3/uL (0.0-0.1); BASOPHILS % (AUTO) 0.9 % (0.2-1.0); EOSINOPHILS % (AUTO) 0.6 % (0.9-2.9); HEMATOCRIT 25.9 % (42.0-54.0); HEMOGLOBIN 8.5 g/dL (13.5-18.0); LYMPHOCYTES # (AUTO) 2.4 X10^3/uL (1.3-2.9); LYMPHOCYTES % (AUTO) 37.4 % (21.0-51.0); MEAN CORPUSCULAR HEMOGLOBIN 32.3 pg (27.0-34.0); MEAN CORPUSCULAR HGB CONC 32.8 g/dL (33.0-35.0); MEAN CORPUSCULAR VOLUME 98.5 fL (80.0-100.0); MEAN PLATELET VOLUME 9.7 fL (7.4-11.0); MONOCYTES # (AUTO) 0.4 x10^3/uL (0.3-0.8); MONOCYTES % (AUTO) 5.6 % (0.0-13.0); NEUTROPHILS # (AUTO) 3.6 x10^3/uL (2.2-4.8); NEUTROPHILS % (AUTO) 55.5 % (42.0-75.0); PLATELET COUNT 75 X10^3/uL (150.0-450.0); RED BLOOD COUNT 2.63 X10^6/uL (4.7-6.0); RED CELL DISTRIBUTION WIDTH 17.5 % (11.6-16.5); WHITE BLOOD COUNT 6.5 X10^3/uL (3.6-10.0)
[2023-08-08 04:01] LABS: ALANINE AMINOTRANSFERASE 8 Units/L (12-78); ALBUMIN 2.3 g/dL (3.4-5.0); ALKALINE PHOSPHATASE 41 Units/L (46-116); ASPARTATE AMINO TRANSFERASE 13 Units/L (15-37); BLOOD UREA NITROGEN 23 mg/dL (7-18); CALCIUM 7.9 mg/dL (8.5-10.1); CARBON DIOXIDE 23.1 mmol/L (21-32); CHLORIDE 110 mmol/L (98-107); COR CA(FOR HYPOALB) 9.3 mg/dL (8.5-10.1); CREATININE 2.44 mg/dL (0.70-1.30); GLUCOSE 102 mg/dL (65-99); POTASSIUM 3.6 mmol/L (3.5-5.1); SODIUM 138 mmol/L (136-145); TOTAL PROTEIN 9.7 g/dL (6.4-8.2); eGFR NON BLACK RACES 27 (>60)
[2023-08-08] MEDS ORDERED: CONSULT PHARMACY - POTASSIUM & MAGNESIUM XX SCH (07:00)
[2023-08-08] MEDS ORDERED: REMDESIVIR 200 MG in NS 250 ML IV 250 ML IV ONE (10:11)
--- NOTE | 2023-08-08 10:20 | EKG ---
Test Reason : SOB, CHEST PAIN Blood Pressure : */* mmHG Vent. Rate : 94 BPM Atrial Rate : 94 BPM P-R Int : 132 ms QRS Dur : 90 ms QT Int : 388 ms P-R-T Axes : 68 7 74 degrees QTc Int : 485 ms Normal sinus rhythm Nonspecific ST and T wave abnormality Prolonged QT Abnormal ECG When compared with ECG of 07-AUG-2023 19:14, (Unconfirmed) st abnl has returned Confirmed by Noé Tam MD ([id number]) on 08/08/2023 12:34:23 PM Referred By: Confirmed By: Noé Tam MD
[2023-08-08] MEDS: SOLU-Medrol 40 MG VIAL IVP SCH ×3 (11:09→21:19)
--- NOTE | 2023-08-08 11:44 | DR.H&P ---
H&P - History & Physical for Day of: H&P Date: 08/07/23 - Chief Complaint Chief Complaint: CHEST PAIN, BODY ACHES, COUGH - History of Present Illness History of Present Illness: IS A 78 YEAR OLD PATIENT OF OURS. HE HAS A PMH OF DM II, HTN, CAD, MULTIPLE MYELOMA, HYPERLIPIDEMIA, NEUROPATHY, HYPOTHYROIDISM, HX OF PROSTATE CANCER, CARDIAC STENTS, HERNIA REPAIR, CATARACT SURGERY, AND NECK SURGERY. CARDIAC STENTS WERE JUST PLACED ON 07/16/23 AT [facility] IN [place]. HE REPORTS THAT HE WAS TOLD BY HIS [employer] SUPERVISOR THAT HE WOUND NEED A BYPASS SOON. PATIENT PRESENTED TO THE ER WITH COMPLAINTS OF MID CHEST PAIN THAT RADIATES THROUGH THE SHOULDER BLADES, BODY ACHES, COUGH, AND GENERALIZED WEAKNESS. HE DESCRIBES PAIN SHARP, INTERMITTENT, AND RATED IT A 3/10 ON ARRIVAL. HE REPORTS THAT COUGH HAS BEEN NON-PRODUCTIVE. HE ADMITS TO TESTING POSTIVE FOR COVID-19 TWO DAYS AGO. HE DENIES FEVER, CHILLS, OR BLADDER/BOWEL COMPLAINTS. ON ARRIVAL TO THE HOSPITAL, VITALS WERE: 97.8-253-78-100%-178/77. LABS WERE OBTAINED. WBC 5.7, RBC 2.40, HGB 7.9, HCT 23.3, PLT COUNT 69, PT 15.0, INR 1.20, SODIUM 139, POTASSIUM 3.0, CHLORIDE 111, BUN 24, CREATININE 2.39, GLUCOSE 98, CALCIUM 7.9, MAGNESIUM 1.9, TOTAL BILI 0.50, AST 13, ALT 9, ALK PHOS 41, TROPONIN 64.2, TOTAL PROTEIN 9.2, ALBUMIN 2.2. URINALYSIS WAS OBTAINED AND WAS UNREMARKABLE. A CHEST XRAY WAS OBTAINED AND REVEALED: 1. No focal consolidation is seen. 2. The heart size is normal. EKG WAS OBTAINED AND REVEALED: SINUS TACHYCARDIA WITH HR 107 BPM. WHILE IN THE ER, HIS CHEST PAIN WORSENED. HE WAS GIVEN SUBLINGUAL NITRO X 2, A NORMAL SALINE BOLUS, ZOFRAN 4MG IV, AND IV MORPHINE. TROPONIN WAS REPEATED AFTER TWO HOURS. REPEAT TROPONIN WAS 119. NO ISCHEMIC CHANGES WERE SEEN ON REPEAT EKG. DECISION WAS MADE TO ADMIT PATIENT TO THE HOSPITAL INPATIENT STATUS FOR FUTHER EVALUA TION AND TREATMENT OF CHEST PAIN WITH ELEVATED TROPONINS, PROBABLY VIRAL CARDIOMYOPATHY SECONDARY TO COVID-19. ON ADMISSION, HE WAS STARTED ON A HEPARIN DRIP, REMDESIVIR 200MG IV X 1 DOSE, SOLU-MEDROL 20MG IV Q8H, MORPHINE SULFATE 4MG IV Q4H PRN, NITROSTAT 0.4MG SL Q5M PRN, ZOFRAN 4MG IV Q6H PRN, OTBS ACHS, AND HUMULIN R SLIDING SCALE. WE WILL REVIEW HIS HOME MEDICATIONS WHEN THEY ARE AVAILABLE TO US. WE WILL OBTAIN SERIAL CARDIAC ENZYMES AND EKGS, AN ECHOCARDIOGRAM, AND CONSULT , [employer]. OTHERWISE, WE WILL FOLLOW UP WITH AM LABS AND CONTINUE TO MONITOR. TIME SPENT ON CLINICAL ASSESSMENT, REVIEWING LABS AND IMAGING, DECISION MAKING, AND DOCUMENTATION GREATER THAN 75 MINUTES. - Past Medical History Past Medical History: Coronary Artery Disease, Diabetes, Dyslipidemia, Hypertension, Hypothyroidism - Past Surgical History Surgical History: Abdominal Surgery, Angioplasty/Stents, Ortho Surgery, Other - Family History Family Medical History: Diabetes Mellitus, Hypertension - Social History Does patient currently use any type of tobacco product: No Have you used tobacco products in the last 12 months: No Type of Tobacco Use: None Does any household member use tobacco: No Alcohol Use: None Drug Use: None - Review of Systems Constitutional: Weakness. denies: Fever, Chills Eyes: No Symptoms Reported ENT: No Symptoms Reported Respiratory: Cough, Shortness of Breath Cardiovascular: Chest Pain Gastrointestinal: Nausea Genitourinary: No Symptoms Reported Musculoskeletal: No Symptoms Reported Skin: No Symptoms Reported Neurological: Weakness - Physical Exam Vital Signs: Vital Signs Temperature 100.0 F Temperature 98.1 F Pulse Rate 94 Pulse Rate 95 Pulse Rate 93 Pulse Rate 80 Pulse Rate 80 Pulse Rate 79 Pulse Rate 84 Respiratory Rate 22 Respiratory Rate 18 Respiratory Rate 20 Respiratory Rate 17 Respiratory Rate 18 Respiratory Rate 17 Respiratory Rate 18 Blood Pressure 165/70 Blood Pressure 161/71 Blood Pressure 180/75 Blood Pressure 164/74 Blood Pressure 155/67 Blood Pressure 150/65 Blood Pressure 155/68 O2 Sat by Pulse Oximetry 99 O2 Sat by Pulse Oximetry 100 O2 Sat by Pulse Oximetry 96 O2 Sat by Pulse Oximetry 100 O2 Sat by Pulse Oximetry 100 O2 Sat by Pulse Oximetry 97 O2 Sat by Pulse Oximetry 100 Oriented: Normal Eyes: Normal Ear: Normal Nose: Normal Throat: Normal Respiratory: Diminished Throughout Cardiovascular: Tachycardia : Normal Auscultation: Bowel Sounds: Normal Palpation: Normal Tenderness: Normal Skin: Normal Musculoskeletal: Normal Psychiatric: Normal Mood Description: Calm Affect: Normal Speech Pattern: Clear - Assessment/Plan (1) Chest pain, rule out acute myocardial infarction Status: Acute Plan: ADMIT, SERIAL CARDIAC ENZYMES & EKGs, ECHO, CARDIOLOGY CONSULT, HEPARIN DRIP, REMDESIVIR 200MG IV X 1 DOSE, SOLU-MEDROL 20MG IV Q8H, MORPHINE SULFATE 4MG IV Q4H PRN, NITROSTAT 0.4MG SL Q5M PRN, ZOFRAN 4MG IV Q6H PRN, OTBS ACHS, AND HUMULIN R SLIDING SCALE. REVIEW HOME MEDICATIONS (2) COVID-19 virus infection Status: Acute (3) Bronchitis Status: Acute (4) Elevated troponin level Status: Acute (5) DM II (diabetes mellitus, type II), controlled Qualifiers: Diabetes mellitus predatory animal exterminator insulin use: unspecified predatory animal exterminator insulin use status Diabetes mellitus complication status: with hyperglycemia Qualified Code(s): E11.65 - Type 2 diabetes mellitus with hyperglycemia Status: Chronic (6) CAD (coronary artery disease) Qualifiers: Coronary Disease-Associated Artery/Lesion type: [place] artery [place] vs. transplanted heart: [place] heart Status: Chronic (7) Hypertension Qualifiers: Hypertension type: primary hypertension Qualified Code(s): I10 - Essential (primary) hypertension Status: Chronic (8) Multiple myeloma Qualifiers: Multiple myeloma remission status: unspecified Qualified Code(s): C90.00 - Multiple myeloma not having achieved remission Status: Chronic - Allergies Allergies/Adverse Reactions: Allergies Allergy/AdvReac Type Severity Reaction Status Date / Time atorvastatin [From Lipitor] Allergy Verified 08/07/23 21:02
--- NOTE | 2023-08-08 13:58 | DR.CONSULT ---
CONSULT Consultation for Day of: Date: 08/08/23 Chief Complaint Chief Complaint: cp/sob/body aches/weak Allergies Allergies Allergy/AdvReac Type Severity Reaction Status Date / Time atorvastatin [From Lipitor] Allergy Verified 08/07/23 21:02 History of Present Illness History of Present Illness: 78 yo male- stents to every coronary artery- last one few weeks ago to [facility] in [facility]- has had daily cp ever since taking nitro daily- CCB stopped as low bp but now bp up- started feeling really bad this weekend with fever/cough/right sided cp/weak- dxed with covid on saturday- continued to have cp and feel bad so got admitted- first trop elevated at 119 then 62- ekg: just minor st abnl- no cp today- on heparin but not his cardiac meds Past Medical History Past Medical History: Coronary Artery Disease, Diabetes, Dyslipidemia, Hypertension and Hypothyroidism Past Surgical History Surgical History: Abdominal Surgery, Angioplasty/Stents, Ortho Surgery and Other Family History Family Medical History: Diabetes Mellitus and Hypertension Social History Does patient currently use any type of tobacco product: No Have you used tobacco products in the last 12 months: No Type of Tobacco Use: None Does any household member use tobacco: No Alcohol Use: None Drug Use: None Medications Home Medications: atorvastatin [From Lipitor] Allergy (Verified 08/07/23 21:02) Physical Exam Vital Signs: Vital Signs Temperature 99.1 F Temperature 100.0 F Pulse Rate 86 Pulse Rate 82 Pulse Rate 93 Pulse Rate 94 Pulse Rate 95 Pulse Rate 93 Pulse Rate 80 Pulse Rate 80 Respiratory Rate 17 Respiratory Rate 16 Respiratory Rate 29 Respiratory Rate 22 Respiratory Rate 18 Respiratory Rate 20 Respiratory Rate 17 Respiratory Rate 18 Blood Pressure 177/69 Blood Pressure 191/74 Blood Pressure 177/81 Blood Pressure 163/77 Blood Pressure 165/70 Blood Pressure 161/71 Blood Pressure 180/75 Blood Pressure 164/74 Blood Pressure 155/67 O2 Sat by Pulse Oximetry 100 O2 Sat by Pulse Oximetry 100 O2 Sat by Pulse Oximetry 100 O2 Sat by Pulse Oximetry 99 O2 Sat by Pulse Oximetry 100 O2 Sat by Pulse Oximetry 96 O2 Sat by Pulse Oximetry 100 O2 Sat by Pulse Oximetry 100 alert ox3 sitting in chair not in distress no bruits clear lungs rrr soft edie mild edema other labs to note:cr 2.4 hct 25 albumin2.3 Plan (1) Chest pain, rule out acute myocardial infarction: Status: Acute Plan: asa/plavix/bb/ccb/nitrate- heparin for 48-72 hours- echo. follow (2) COVID-19 virus infection: Status: Acute (3) Bronchitis: Status: Acute (4) Elevated troponin level: Status: Acute (5) DM II (diabetes mellitus, type II), controlled: Status: Chronic Qualifiers: Diabetes mellitus supervisor intermediates insulin use: unspecified supervisor intermediates insulin use status Diabetes mellitus complication status: with hyperglycemia Qualified Code(s): E11.65 - Type 2 diabetes mellitus with hyperglycemia (6) CAD (coronary artery disease): Status: Chronic Qualifiers: Coronary Disease-Associated Artery/Lesion type: [place] artery [place] vs. transplanted heart: [place] heart (7) Hypertension: Status: Chronic Qualifiers: Hypertension type: primary hypertension Qualified Code(s): I10 - Essential (primary) hypertension (8) Multiple myeloma: Status: Chronic Qualifiers: Multiple myeloma remission status: unspecified Qualified Code(s): C90.00 - Multiple myeloma not having achieved remission
[2023-08-08] MEDS: PLAVIX PO SCH (14:12)
[2023-08-08] MEDS: ASPIRIN 81 MG CHEWTAB PO SCH (14:12)
[2023-08-08] MEDS: IMDUR PO SCH (14:12)
[2023-08-08] MEDS: LOPRESSOR TAB 25 MG PO SCH ×2 (14:12→21:18)
[2023-08-08] MEDS: NORVASC TAB 5 MG PO SCH (14:12)
--- NOTE | 2023-08-08 16:04 | EKG ---
Test Reason : SOB, CHEST PAIN Blood Pressure : */* mmHG Vent. Rate : 62 BPM Atrial Rate : 62 BPM P-R Int : 134 ms QRS Dur : 100 ms QT Int : 464 ms P-R-T Axes : 68 1 11 degrees QTc Int : 470 ms Normal sinus rhythm Moderate voltage criteria for LVH, may be normal variant ( R in aVL , Sokolow-Davis ) Nonspecific ST abnormality Abnormal ECG When compared with ECG of 08-AUG-2023 10:08, Vent. rate has decreased BY 32 BPM T wave inversion now evident in Inferior leads Nonspecific T wave abnormality no longer evident in Lateral leads Confirmed by Noé Tam MD ([id number]) on 08/09/2023 10:07:13 AM Referred By: Confirmed By: Noé Tam MD
--- NOTE | 2023-08-08 22:19 | EKG ---
Test Reason : SOB, CHEST PAIN Blood Pressure : */* mmHG Vent. Rate : 65 BPM Atrial Rate : 65 BPM P-R Int : 134 ms QRS Dur : 86 ms QT Int : 464 ms P-R-T Axes : 63 25 35 degrees QTc Int : 482 ms Normal sinus rhythm Nonspecific ST abnormality Prolonged QT Abnormal ECG When compared with ECG of 08-AUG-2023 15:50, (Unconfirmed) No significant change was found Confirmed by Noé Tam MD ([id number]) on 08/09/2023 10:06:55 AM Referred By: Confirmed By: Noé Tam MD
[2023-08-09] MEDS: HEPARIN SODIUM IN D5W 25,000 UNITS/500 ML BAG IV PRN (05:03)
[2023-08-09 05:20] LABS: BASOPHILS % (AUTO) 0.3 % (0.2-1.0); HEMATOCRIT 22.6 % (42.0-54.0); HEMOGLOBIN 7.5 g/dL (13.5-18.0); LYMPHOCYTES # (AUTO) 1.1 X10^3/uL (1.3-2.9); LYMPHOCYTES % (AUTO) 27.4 % (21.0-51.0); MEAN CORPUSCULAR HEMOGLOBIN 32.1 pg (27.0-34.0); MEAN CORPUSCULAR VOLUME 97.3 fL (80.0-100.0); MEAN PLATELET VOLUME 9.9 fL (7.4-11.0); MONOCYTES # (AUTO) 0.1 x10^3/uL (0.3-0.8); MONOCYTES % (AUTO) 2.7 % (0.0-13.0); NEUTROPHILS # (AUTO) 2.8 x10^3/uL (2.2-4.8); NEUTROPHILS % (AUTO) 69.6 % (42.0-75.0); PLATELET COUNT 69 X10^3/uL (150.0-450.0); RED BLOOD COUNT 2.32 X10^6/uL (4.7-6.0); RED CELL DISTRIBUTION WIDTH 17.6 % (11.6-16.5); WHITE BLOOD COUNT 4.1 X10^3/uL (3.6-10.0)
[2023-08-09] MEDS: SOLU-Medrol 40 MG VIAL IVP SCH ×3 (05:24→21:16)
[2023-08-09 05:42] LABS: ALBUMIN 2.1 g/dL (3.4-5.0); CALCIUM 7.8 mg/dL (8.5-10.1); CARBON DIOXIDE 20.9 mmol/L (21-32); COR CA(FOR HYPOALB) 9.3 mg/dL (8.5-10.1); CREATININE 2.4 mg/dL (0.70-1.30); POTASSIUM 4.2 mmol/L (3.5-5.1); TOTAL PROTEIN 9.4 g/dL (6.4-8.2)
--- NOTE | 2023-08-09 07:01 | RAD ---
EXAM:Portable chestHISTORY:Shortness of breathCOMPARISON:08/07/2023 and multiple priors.FINDINGS:There is a port present on the left. Heart size is normal. [place] are normal. There is a tubular foreign body overlying the right atrium present on the prior examination but not present on the examination 12/05/2022. This was visible on the CT abdomen pelvis 08/03/2023. Lungs are hyperinflated but free of acute infiltrates. No pleural effusions are identified. Bony thorax is unremarkable.IMPRESSION:Lungs mildly hyperinflated but clear4 cm tubular density visible overlying the right heart possibly within the right atrium. Intra-atrial foreign body is suspected. This was present on images dating back to CT abdomen pelvis of 07/24/2023 but not present on the chest x-ray of 2022. Cardiac echo evaluation recommended.THIS IS AN ELECTRONICALLY VERIFIED FINAL [id number]/2023 6:57 AM - Electronically signed by Lopez Glover MD
[2023-08-09] MEDS: LOPRESSOR TAB 25 MG PO SCH ×3 (07:40→20:21)
[2023-08-09] MEDS: NORVASC TAB 5 MG PO SCH ×3 (07:41→20:21)
--- NOTE | 2023-08-09 08:45 | NOTE.SOAP ---
Soap Note Note for Day of Date of Exam: 08/09/23 Subjective Data Subjective Data: no more cp since yesterday Objective Data Objective Data: bp 180 p 70 clear lungs rrr edie minimal edema troponins trended down hct had dropped to 22/platelet count hasdropped( on heparin) echo: lvh no focal wall motion abnormality ekg: minor st abnl Assessment Assessment: cad, nstemi, covid, anemia, chronic renal insuff, low albumin, dropping hct/plt count Plan Plan: push ccb/nitrate. stop heparin- will try to reach out to primary cardiology for opinion on cath
[2023-08-09] MEDS: PLAVIX PO SCH (09:00)
[2023-08-09] MEDS: IMDUR PO SCH ×2 (09:00→20:21)
[2023-08-09] MEDS: ASPIRIN 81 MG CHEWTAB PO SCH (09:01)
[2023-08-09] MEDS: REMDESIVIR 100 MG in NS 250 ML IV 250 ML IV SCH (09:01)
[2023-08-09] MEDS ORDERED: BUTT CREAM (COMPOUND) ONE (14:33)
[2023-08-09] MEDS ORDERED: BUTT CREAM (COMPOUND) TOP PRN (14:37)
[2023-08-09] MEDS ORDERED: COLACE CAP 100 MG PO PRN (20:52)
[2023-08-09] MEDS ORDERED: FLEXERIL TAB 10 MG PO PRN (20:52)
[2023-08-09] MEDS ORDERED: CRESTOR TAB 10 MG PO SCH (21:00)
[2023-08-09] MEDS ORDERED: FLOMAX PO SCH (21:00)
[2023-08-09] MEDS: SODIUM BICARBONATE TAB 650MG PO SCH (21:14)
--- NOTE | 2023-08-10 04:43 | RAD ---
HISTORYSOB Relevant Clinical InformationSTUDYCHEST, 1 [id number]/2023FINDINGSThe trachea is midline. The cardiac silhouette is unremarkable. Linear atelectasis left lung base. The bony thorax is unremarkable.IMPRESSIONLinear atelectasis left base. .Electronically signed by: Nito Regalado (Aug 10, 2023 04:42:18)
[2023-08-10 05:15] LABS: BASOPHILS % (AUTO) 0.3 % (0.2-1.0); HEMOGLOBIN 7.4 g/dL (13.5-18.0); LYMPHOCYTES % (AUTO) 20.5 % (21.0-51.0); MEAN CORPUSCULAR HEMOGLOBIN 32.8 pg (27.0-34.0); MEAN CORPUSCULAR HGB CONC 33.6 g/dL (33.0-35.0); MEAN CORPUSCULAR VOLUME 97.5 fL (80.0-100.0); MEAN PLATELET VOLUME 10.5 fL (7.4-11.0); MONOCYTES # (AUTO) 0 x10^3/uL (0.3-0.8); NEUTROPHILS # (AUTO) 3.8 x10^3/uL (2.2-4.8); NEUTROPHILS % (AUTO) 78.2 % (42.0-75.0); PLATELET COUNT 79 X10^3/uL (150.0-450.0); RED BLOOD COUNT 2.26 X10^6/uL (4.7-6.0); RED CELL DISTRIBUTION WIDTH 17.3 % (11.6-16.5); WHITE BLOOD COUNT 4.9 X10^3/uL (3.6-10.0)
[2023-08-10 05:22] LABS: ALANINE AMINOTRANSFERASE < 6 Units/L (12-78); ALBUMIN 2.1 g/dL (3.4-5.0); ALKALINE PHOSPHATASE 35 Units/L (46-116); ASPARTATE AMINO TRANSFERASE 14 Units/L (15-37); BLOOD UREA NITROGEN 30 mg/dL (7-18); CALCIUM 7.8 mg/dL (8.5-10.1); CARBON DIOXIDE 20.6 mmol/L (21-32); CHLORIDE 109 mmol/L (98-107); COR NA(FOR HYPERGLY) 138 mmol/L (136-145); CREATININE 2.33 mg/dL (0.70-1.30); GLUCOSE 183 mg/dL (65-99); SODIUM 136 mmol/L (136-145); TOTAL PROTEIN 9.3 g/dL (6.4-8.2); eGFR NON BLACK RACES 29 (>60)
[2023-08-10 05:23] LABS: COR CA(FOR HYPOALB) 9.3 mg/dL (8.5-10.1)
[2023-08-10 05:37] LABS: PLATELET MORPHOLOGY COMMENT NORMAL (NORMAL); POIKILOCYTOSIS PRESENT; TEAR DROP CELLS PRESENT
[2023-08-10] MEDS: SOLU-Medrol 40 MG VIAL IVP SCH (05:37)
[2023-08-10 05:38] LABS: OVALOCYTES PRESENT; SCHISTOCYTES PRESENT
[2023-08-10 08:14] VITALS: BMI 25.1
[2023-08-10] MEDS: IMDUR PO SCH (08:41)
[2023-08-10] MEDS: REMDESIVIR 100 MG in NS 250 ML IV 250 ML IV SCH (08:41)
[2023-08-10] MEDS: LOPRESSOR TAB 25 MG PO SCH (08:41)
[2023-08-10] MEDS: PLAVIX PO SCH (08:42)
[2023-08-10] MEDS: SODIUM BICARBONATE TAB 650MG PO SCH (08:42)
[2023-08-10] MEDS: ASPIRIN 81 MG CHEWTAB PO SCH (08:42)
[2023-08-10] MEDS: NORVASC TAB 5 MG PO SCH (08:43)
[2023-08-10] MEDS ORDERED: VITAMIN D3 125 mcg (5,000 UNITS) PO SCH (09:00)
[2023-08-10] MEDS ORDERED: JANUVIA PO SCH (09:00)
[2023-08-10] MEDS ORDERED: POMALIDOMIDE 2 MG PO SCH (09:00)
[2023-08-10] MEDS ORDERED: SYNTHROID 50 mcg TAB PO SCH (09:00)
[2023-08-10] MEDS ORDERED: SINGULAIR TAB 10 MG PO SCH (09:00)
[2023-08-10] MEDS ORDERED: PROCRIT or EPOGEN VIAL 20,000 UNITS SC ONE (11:39)
[2023-08-10] MEDS ORDERED: ZESTRIL TAB 20 MG ONE ×2 (11:53→15:25)
[2023-08-10] MEDS ORDERED: ZESTRIL TAB 20 MG PO SCH (12:00)
[2023-08-10] MEDS ORDERED: NS 100 ML IV 100 ML with VENOFER 100 MG IV ONE ×2 (12:00)
[2023-08-10] MEDS ORDERED: NS 250 ML IV 250 ML IV ONE (12:02)
[2023-08-10 15:13] VITALS: TEMP 98.2
[2023-08-10] MEDS ORDERED: ZESTRIL TAB 20 MG PO STA (15:18)
[2023-08-10] MEDS ORDERED: APRESOLINE TAB 25 MG PO STA (15:19)
[2023-08-10 17:19] VITALS: BP 147/74; PULSE 71; RESP 26; O2SAT 99
[2023-08-10] MEDS ORDERED: SNACK - Diabetic Appropriate PO SCH (20:00)
== END 2023-08-10 17:25 | disposition home or self-care (01) | DRG 280 ==
LOC: ER 16:27 → ICU 20:03
PROVIDERS: ADMIT Internal Medicine; ATTEND Internal Medicine
DX: I10 Essential (primary) hypertension; R00.0 Tachycardia, unspecified; R53.1 Weakness; U07.1 COVID-19; R77.8 Other specified abnormalities of plasma proteins; R06.02 Shortness of breath; I25.10 Atherosclerotic heart disease of native coronary artery without angina pectoris; R07.89 Other chest pain; E87.6 Hypokalemia; Z66 Do not resuscitate; C90.00 Multiple myeloma not having achieved remission; J20.8 Acute bronchitis due to other specified organisms; E03.8 Other specified hypothyroidism; E11.65 Type 2 diabetes mellitus with hyperglycemia; I21.4 Non-ST elevation (NSTEMI) myocardial infarction